=== PATIENT | male | born 1965 | race Caucasian/White ===

== ENCOUNTER 2019-10-19 07:30 | Emergency (ER) | payer OTHER ==
[~2019-10-19 07:30] MED LIST: Ondansetron 4 MG/2 ML SDV ONE; Sodium Chloride 0.9% 1,000 ML ONE
[2019-10-19] MEDS ORDERED: Sodium Chloride 0.9% 1,000 ML IV ONE (07:32)
[2019-10-19] MEDS ORDERED: Ondansetron 4 MG/2 ML SDV IVPUSH ONE ×2 (07:33→08:55)
--- NOTE | 2019-10-19 07:42 | EDM.PDOC ---
ED HPI GENERAL MEDICAL PROBLEM - General Chief Complaint: Abdominal Pain Stated Complaint: abdominal pain Time Seen by Provider: 10/19/19 07:30 Source of Information: Reports: Patient History Limitations: Reports: No Limitations - History of Present Illness INITIAL COMMENTS - FREE TEXT/NARRATIVE: Patient to the emergency department complaining lower abdominal pain since Monday. The patient's low abdominal pain is more in the left lower quadrant area. Patient advises that he has not had a bowel movement for 3 days. In addition to this the patient advises he has had nausea and vomiting. The patient denies any fever chills denies any other symptoms. Onset: Gradual Duration: Day(s): (Onset was yesterday) Location: Reports: Abdomen Quality: Reports: Ache Severity: Moderate Improves with: Reports: None Worsens with: Reports: None Associated Symptoms: Reports: Nausea/Vomiting. Denies: Chest Pain, Cough, Fever/Chills Treatments BOOM TENDER: Reports: Other (see below) (none) - Related Data Allergies Allergy/AdvReac Type Severity Reaction Status Date / Time barium sulfate Allergy Shaking Verified 11/08/16 08:33 Sulfa (Sulfonamide Allergy Shaking Verified 11/08/16 08:33 Antibiotics) Home Meds: Home Meds Ondansetron [Zofran ODT] 4 mg PO Q6H PRN 5 Days #12 tab.dis 10/19/19 [Rx] ED ROS GENERAL - Review of Systems Review Of Systems: See Below Constitutional: Reports: No Symptoms. Denies: Fever, Chills HEENT: Reports: No Symptoms Respiratory: Reports: No Symptoms. Denies: Shortness of Breath Cardiovascular: Reports: No Symptoms. Denies: Chest Pain GI/Abdominal: Reports: Abdominal Pain, Constipation, Nausea, Vomiting. Denies: Bloody Stool, Melena : Reports: No Symptoms Musculoskeletal: Reports: No Symptoms Skin: Reports: No Symptoms Neurological: Reports: No Symptoms Psychiatric: Reports: No Symptoms ED EXAM, GI/ABD - Physical Exam Exam: See Below Exam Limited By: No Limitations General Appearance: Alert, WD/WN, No Apparent Distress Ears: Normal External Exam Nose: Normal Inspection Throat/Mouth: Normal Inspection, Normal Lips, Normal Voice, No Airway Compromise Head: Atraumatic, Normocephalic Neck: Normal Inspection, Supple, Non-Tender, Full Range of Motion Respiratory/Chest: No Respiratory Distress, Lungs Clear, Normal Breath Sounds, Chest Non-Tender Cardiovascular: Normal Peripheral Pulses, Regular Rate, Rhythm, No Murmur GI/Abdominal Exam: Soft, Tender (Tender in the left lower abdomen with palpation no guarding abdomen is soft). No: Guarding, Rigid Back Exam: Normal Inspection, Full Range of Motion Extremities: Normal Inspection, Normal Range of Motion, Non-Tender, Normal Capillary Refill Neurological: Alert, Oriented, Normal Cognition, Normal Gait, No Motor/Sensory Deficits Psychiatric: Normal Affect, Normal Mood Skin Exam: Warm, Dry, Intact, Normal Color Course - Vital Signs Text/Narrative:: 0853 the patient just completed the CT of the abdomen pelvis with IV contrast, the patient advises that he has been allergic to oral contrast in the past and the oral contrast was not given secondary to that. The patient's white count is normal, the patient's creatinine is 1.4, lactic acid is 2.7 and his liver function is mildly elevated. Urinalysis is still pending. The CT has been sent to the radiologist reading is pending. The patient has been given 1 L normal saline bolus and 4 mg of Zofran IV. The patient currently has normal saline at 125 mL an hour. Once the radiologist has completed the reading of the CT a disposition will be made. 1230 patient was evaluated in the emergency department again, suspect that the patient probably has some type of a viral gastroenteritis. The patient has stopped vomiting and is tolerating p.o. CT the abdomen pelvis was completed and read by the radiologist as all essentially negative see report for complete details. The patient was given Dulcolax 3 tabs p.o. to help with the increase stool throughout the colon no bowel movement for 3 days. The patient was given Zofran 4 mg every 4-6 hours as needed as well as he was advised to keep increas ing his fluids. The patient is to follow-up with his family doctor this coming week, he is to call Monday for an appointment time he is to return to the emergency department sooner if worse or any problems. Patient's vital signs have returned normal. Last Recorded V/S: Last Vital Signs Temp 36.6 C 10/19/19 09:07 Pulse 97 10/19/19 13:14 Resp 16 10/19/19 13:14 BP 150/73 H 10/19/19 13:14 Pulse Ox 98 10/19/19 13:14 - Orders/Labs/Meds Orders: Active Orders 24 hr Category Date Time Status Abdomen Pelvis w Cont [CT] Stat Exams 10/19/19 07:43 Taken Labs: Laboratory Tests 10/19/19 10/19/19 10/19/19 Range/Units 08:02 08:02 08:02 WBC 8.2 (5.0-10.0) 10^3/uL RBC 4.86 (4.50-6.00) 10^6/uL Hgb 16.0 (14.0-18.0) g/dL Hct 47.3 (40.0-54.0) % MCV 97.3 H (82.0-94.0) fL MCH 32.9 H (27.0-32.0) pg MCHC 33.8 (33.0-38.0) g/dL RDW Coeff of Jaziel 12.9 (11.0-15.0) % Plt Count 158 (150-400) 10^3/uL Neut % (Auto) 86.7 H (35-85) % Lymph % (Auto) 5.5 L (10-55) % Logan % (Auto) 7.7 (0-16) % Eos % (Auto) 0 (0-5) % Baso % (Auto) 0.1 (0-3) % Neut # (Auto) 7.07 H (1.80-7.00) 10^3/uL Lymph # (Auto) 0.45 L (1.00-4.80) 10^3/uL Logan # (Auto) 0.63 (0.00-0.80) 10^3/uL Eos # (Auto) 0.00 (0.00-0.45) 10^3/uL Baso # (Auto) 0.01 10^3/uL Sodium 137 (136-145) mEq/L Potassium 3.8 (3.5-5.0) mEq/L Chloride 92 L (98-106) mEq/L Carbon Dioxide 20 L (21-32) mmol/L BUN 18 (7-18) mg/dL Creatinine 1.4 H D (0.7-1.3) mg/dL Est Cr Clr Drug Dosing 66.58 mL/min Estimated GFR (MDRD) 52 L (>=60) mL/min Glucose 278 H D (75-99) mg/dL Lactic Acid 2.7 H (0.4-2.0) mmol/L Calcium 9.8 (8.4-10.1) mg/dL Total Bilirubin 2.7 H (0.0-1.0) mg/dL AST 104 H (15-37) U/L ALT 115 H (12-78) U/L Alkaline Phosphatase 99 (46-116) U/L C-Reactive Protein 0.2 (0.2-0.8) mg/dL Total Protein 9.2 H (6.4-8.2) g/dL Albumin 4.6 (3.4-5.0) g/dL Urine Color (YELLOW) Urine Appearance (CLEAR) Urine pH (4.5-8.0) Ur Specific [place] (1.003-1.020) Urine Protein (NEGATIVE) mg/dL Urine Glucose (UA) (NEGATIVE) mg/dL Urine Ketones (NEGATIVE) mg/dL Urine Occult Blood (NEGATIVE) Urine Nitrite (NEGATIVE) Urine Bilirubin (NEGATIVE) Urine Urobilinogen (0.2-1.0) EU/dL Ur Leukocyte Esterase (NEGATIVE) Urine RBC (0-5) /HPF Urine WBC (0-5) /HPF Ur Squamous Epith Cells (NOT SEEN) /HPF Urine Bacteria (NOT SEEN) /HPF Urine Mucus (NOT SEEN) /HPF 10/19/19 Range/Units 09:20 WBC (5.0-10.0) 10^3/uL RBC (4.50-6.00) 10^6/uL Hgb (14.0-18.0) g/dL Hct (40.0-54.0) % MCV (82.0-94.0) fL MCH (27.0-32.0) pg MCHC (33.0-38.0) g/dL RDW Coeff of Jaziel (11.0-15.0) % Plt Count (150-400) 10^3/uL Neut % (Auto) (35-85) % Lymph % (Auto) (10-55) % Logan % (Auto) (0-16) % Eos % (Auto) (0-5) % Baso % (Auto) (0-3) % Neut # (Auto) (1.80-7.00) 10^3/uL Lymph # (Auto) (1.00-4.80) 10^3/uL Logan # (Auto) (0.00-0.80) 10^3/uL Eos # (Auto) (0.00-0.45) 10^3/uL Baso # (Auto) 10^3/uL Sodium (136-145) mEq/L Potassium (3.5-5.0) mEq/L Chloride (98-106) mEq/L Carbon Dioxide (21-32) mmol/L BUN (7-18) mg/dL Creatinine (0.7-1.3) mg/dL Est Cr Clr Drug Dosing mL/min Estimated GFR (MDRD) (>=60) mL/min Glucose (75-99) mg/dL Lactic Acid (0.4-2.0) mmol/L Calcium (8.4-10.1) mg/dL Total Bilirubin (0.0-1.0) mg/dL AST (15-37) U/L ALT (12-78) U/L Alkaline Phosphatase (46-116) U/L C-Reactive Protein (0.2-0.8) mg/dL Total Protein (6.4-8.2) g/dL Albumin (3.4-5.0) g/dL Urine Color Dark yellow (YELLOW) Urine Appearance Clear (CLEAR) Urine pH 5.5 (4.5-8.0) Ur Specific [place] 1.025 H (1.003-1.020) Urine Protein 100 H (NEGATIVE) mg/dL Urine Glucose (UA) Negative (NEGATIVE) mg/dL Urine Ketones >=160 H (NEGATIVE) mg/dL Urine Occult Blood Moderate H (NEGATIVE) Urine Nitrite Negative (NEGATIVE) Urine Bilirubin Moderate H (NEGATIVE) Urine Urobilinogen 0.2 (0.2-1.0) EU/dL Ur Leukocyte Esterase Negative (NEGATIVE) Urine RBC 0-5 (0-5) /HPF Urine WBC 0-5 (0-5) /HPF Ur Squamous Epith Cells Rare (NOT SEEN) /HPF Urine Bacteria Not seen (NOT SEEN) /HPF Urine Mucus Not seen (NOT SEEN) /HPF Meds: Medications Discontinued Medications Generic Name Dose Route Start Last Admin Trade Name Freq PRN Reason Stop Dose Admin Bisacodyl 15 mg 10/19/19 12:34 10/19/19 13:10 Dulcolax PO 10/19/19 12:35 15 mg ONETIME ONE Administration Bisacodyl Confirm 10/19/19 12:58 10/19/19 13:10 Dulcolax Administered 10/19/19 12:59 Not Given Dose 5 mg .ROUTE .STK-MED ONE Sodium Chloride 1,000 mls @ 999 mls/hr 10/19/19 07:32 10/19/19 08:15 Normal Saline IV 10/19/19 08:32 999 mls/hr .BOLUS ONE Administration Sodium Chloride Confirm 10/19/19 07:18 10/19/19 09:30 Normal Saline Administered 10/19/19 07:19 Not Given Dose 1,000 mls @ as directed .ROUTE .STK-MED ONE Sodium Chloride 1,000 mls @ 125 mls/hr 10/19/19 08:45 10/19/19 13:10 Normal Saline IV 999 mls/hr ASDIRECTED JENNIFER Infusion Iopamidol 100 ml 10/19/19 08:28 10/19/19 08:57 Isovue-370 (76%) IVPUSH 10/19/19 08:29 100 ml ONETIME ONE Administration Ondansetron HCl 4 mg 10/19/19 07:33 10/19/19 09:31 Zofran IVPUSH 10/19/19 07:34 Not Given Q6H ONE Ondansetron HCl Confirm 10/19/19 07:17 10/19/19 09:30 Zofran Administered 10/19/19 07:18 Not Given Dose 4 mg .ROUTE .STK-MED ONE Ondansetron HCl 4 mg 10/19/19 08:55 10/19/19 08:15 Zofran IVPUSH 10/19/19 08:56 4 mg ONETIME ONE Administration Departure - Departure Time of Disposition: 12:30 Disposition: Home, Self-Care 01 Condition: Good Clinical Impression: Abdominal pain, Gastroenteritis - Discharge Information *PRESCRIPTION DRUG MONITORING PROGRAM REVIEWED*: Not Applicable *COPY OF PRESCRIPTION DRUG MONITORING REPORT IN PATIENT SARAVANAN: Not Applicable Prescriptions: Ondansetron [Zofran ODT] 4 mg PO Q6H PRN 5 Days #12 tab.dis PRN Reason: Nausea/Vomiting Instructions: Abdominal Pain, Adult Referrals: Sanchez Oreilly PA-C [Primary Care Provider] - Forms: ED Department Discharge Additional Instructions: increase fluids over the counter miralx take 1 cap full 1 x a day follow up with your family doctor this week\ return to ER sooner if worse or problems Sepsis Event Note (ED) - Focused Exam Vital Signs: Vital Signs Temp Pulse Resp BP Pulse Ox 10/19/19 13:14 97 16 150/73 H 98 10/19/19 09:07 36.6 C 108 H 16 154/91 H 99 10/19/19 08:22 118 H 16 172/84 H 99 10/19/19 07:38 36.2 C 128 H 16 197/111 H 98 - Problem List & Annotations (1) Abdominal pain SNOMED Code(s): 40356089 Code(s): R10.9 - UNSPECIFIED ABDOMINAL PAIN Status: Acute Priority: Medium Qualifiers: Abdominal location: left lower quadrant Qualified Code(s): R10.32 - Left lower quadrant pain (2) Gastroenteritis SNOMED Code(s): 66690840 Code(s): K52.9 - NONINFECTIVE GASTROENTERITIS AND COLITIS, UNSPECIFIED Status: Acute Priority: Medium - Problem List Review Problem List Initiated/Reviewed/Updated: Yes - My Orders Last 24 Hours: My Active Orders 10/19/19 07:43 Abdomen Pelvis w Cont [CT] Stat - Assessment/Plan Last 24 Hours: My Active Orders 10/19/19 07:43 Abdomen Pelvis w Cont [CT] Stat Plan: The patient's past medical history, past surgical history, social history and past family medical history was reviewed see the nursing notes for details
[2019-10-19] MEDS ORDERED: Iopamidol 755 Mg/ML 100 ML Bottle IVPUSH ONE (08:28)
[2019-10-19] MEDS ORDERED: Sodium Chloride 0.9% 1,000 ML IV SCH (08:45)
[2019-10-19] MEDS ORDERED: Bisacodyl 5 MG Tab PO ONE (12:34)
[2019-10-19] MEDS ORDERED: Bisacodyl 5 MG Tab ONE (12:58)
== END 2019-10-19 13:19 | disposition home or self-care (01) ==
LOC: CC.ED 07:30
DX: K52.9 Noninfective gastroenteritis and colitis, unspecified (principal); Z88.2 Allergy status to sulfonamides
CPT/HCPCS: 36415; 74177; 80053; 81001; 83605; 85025; 86140; 96361; 96374; 99284; A9270; J2405; J7030; Q9967

== ENCOUNTER 2022-03-01 10:45 | Emergency (ER) | payer OTHER ==
[2022-03-01] MEDS: Ondansetron 4 MG/2 ML SDV ONE (10:45)
[2022-03-01] MEDS: Ondansetron 4 MG/2 ML SDV IVPUSH STA (10:45)
[2022-03-01] MEDS: Iopamidol 755 Mg/ML 100 ML Bottle IVPUSH ONE (11:17)
[2022-03-01] MEDS: Pantoprazole 40 MG Vial IVPUSH ONE (11:34)
[2022-03-01] MEDS: Lactated Ringers 1,000 ML ONE (11:34)
[2022-03-01 12:18] VITALS: BP 168/95; PULSE 105
== END 2022-03-01 13:08 | disposition home or self-care (01) ==
LOC: CC.ED 10:45
DX: K29.21 Alcoholic gastritis with bleeding (principal); I10 Essential (primary) hypertension; Z88.2 Allergy status to sulfonamides; Z88.8 Allergy status to other drugs, medicaments and biological substances; Z20.822 Contact with and (suspected) exposure to COVID-19
CPT/HCPCS: 36415; 71045; 71260; 74177; 80053; 83690; 83735; 85025; 86850; 86900; 86901; 93005; 96374; 96375; 99285-25; A9270-GY; C9113; J2405; J7120; Q9967; U0002

== ENCOUNTER 2022-03-04 06:56 | Observation (INO) | payer OTHER ==
[2022-03-04] MEDS ORDERED: Lactated Ringers 1,000 ML IV SCH ×2 (07:00→15:15)
[2022-03-04] MEDS ORDERED: Lidocaine 2% 5 ML SDV ONE (07:25)
[2022-03-04] MEDS ORDERED: Ketamine 200 MG/20 ML MDV ONE (07:25)
[2022-03-04] MEDS ORDERED: fentaNYL 50 MCG/ML SDV ONE (07:25)
[2022-03-04] MEDS ORDERED: Midazolam 1 MG/ML 2 ML SDV ONE (07:25)
[2022-03-04] MEDS ORDERED: Propofol 200 MG/20 ML SDV ONE (07:25)
[2022-03-04] MEDS: Pantoprazole 40 MG in Sodium Chloride 0.9% 100 ML IV SCH ×2 (11:47→21:56)
[2022-03-04] MEDS: Sodium Chloride 0.9% 1,000 ML IV SCH ×2 (11:48→23:54)
[2022-03-04] MEDS ORDERED: Pantoprazole 40 MG Vial IVPUSH SCH (20:00)
[2022-03-05] MEDS: Pantoprazole 40 MG in Sodium Chloride 0.9% 100 ML IV SCH (03:02)
[2022-03-05] MEDS ORDERED: Non-Formulary Medication 1 Each (Amlodipine [Norvasc] 5 MG Tablet) PO SCH (08:00)
[2022-03-05] MEDS: Sodium Chloride 0.9% 1,000 ML IV SCH (13:14)
[2022-03-05] MEDS: Pantoprazole 40 MG Vial IVPUSH SCH (19:35)
[2022-03-06] MEDS: Pantoprazole 40 MG Vial IVPUSH SCH (07:20)
== END 2022-03-06 09:45 | disposition home or self-care (01) ==
LOC: CC.SDS 06:56 → UNDOADMOB 10:37 → CC.MS 10:37
PROVIDERS: ADMIT Family Medicine; ATTEND Family Medicine
DX: K29.70 Gastritis, unspecified, without bleeding (principal); K25.9 Gastric ulcer, unspecified as acute or chronic, without hemorrhage or perforation; K29.21 Alcoholic gastritis with bleeding; I10 Essential (primary) hypertension; N40.0 Benign prostatic hyperplasia without lower urinary tract symptoms; E78.00 Pure hypercholesterolemia, unspecified; R74.8 Abnormal levels of other serum enzymes; F10.10 Alcohol abuse, uncomplicated; K21.9 Gastro-esophageal reflux disease without esophagitis; Z79.899 Other long term (current) drug therapy; Z88.2 Allergy status to sulfonamides; Z91.041 Radiographic dye allergy status; Z20.822 Contact with and (suspected) exposure to COVID-19; Z90.49 Acquired absence of other specified parts of digestive tract; Z98.890 Other specified postprocedural states
CPT/HCPCS: 36415; 43239; 80053; 83735; 85014; 85018; 85025; 87081; 96365; 96366; 96376; C9113; G0378; J2250; J2704; J3010; J7030; J7120

== ENCOUNTER → 2022-04-22 | Day surgery (SDC) | payer OTHER ==
[~2022-04-22] MED LIST changes: +Ketamine 200 MG/20 ML MDV ONE; +Lactated Ringers 1,000 ML IV SCH; +Lidocaine 2% 20 ML MDV ONE; +Metoclopramide 10 MG/2 ML SDV ONE; +Propofol 200 MG/20 ML SDV ONE; -Sodium Chloride 0.9% 1,000 ML ONE; +fentaNYL 50 MCG/ML SDV ONE
== END ==
LOC: CC.SDS 08:39
PROVIDERS: ATTEND Family Medicine
DX: K29.70 Gastritis, unspecified, without bleeding (principal); K25.9 Gastric ulcer, unspecified as acute or chronic, without hemorrhage or perforation; K44.9 Diaphragmatic hernia without obstruction or gangrene; E78.00 Pure hypercholesterolemia, unspecified; N40.0 Benign prostatic hyperplasia without lower urinary tract symptoms; F10.10 Alcohol abuse, uncomplicated; K21.9 Gastro-esophageal reflux disease without esophagitis; I10 Essential (primary) hypertension; Z88.8 Allergy status to other drugs, medicaments and biological substances; Z79.899 Other long term (current) drug therapy; Z98.890 Other specified postprocedural states; Z88.2 Allergy status to sulfonamides
CPT/HCPCS: 43239; 87081; J2405; J2704; J2765; J3010; J7120; 00731; J3490

== ENCOUNTER → 2022-12-09 | Day surgery (SDC) | payer OTHER ==
[~2022-12-09] MED LIST changes: -Ketamine 200 MG/20 ML MDV ONE; -Lidocaine 2% 20 ML MDV ONE; -Metoclopramide 10 MG/2 ML SDV ONE; -Ondansetron 4 MG/2 ML SDV ONE; -fentaNYL 50 MCG/ML SDV ONE
== END ==
LOC: CC.SDS 08:55
PROVIDERS: ATTEND Family Medicine
DX: Z12.11 Encounter for screening for malignant neoplasm of colon (principal); K21.9 Gastro-esophageal reflux disease without esophagitis; K29.71 Gastritis, unspecified, with bleeding; K31.89 Other diseases of stomach and duodenum; K44.9 Diaphragmatic hernia without obstruction or gangrene; R91.8 Other nonspecific abnormal finding of lung field; F10.10 Alcohol abuse, uncomplicated; L71.9 Rosacea, unspecified; R10.13 Epigastric pain; N40.0 Benign prostatic hyperplasia without lower urinary tract symptoms; Z87.11 Personal history of peptic ulcer disease; E78.00 Pure hypercholesterolemia, unspecified; Z88.8 Allergy status to other drugs, medicaments and biological substances; Z79.899 Other long term (current) drug therapy
CPT/HCPCS: 00813; 87081; J2704; J7120